=== PATIENT | male | born 1945 | race Caucasian/White ===

== ENCOUNTER 2023-06-10 09:33 | Day surgery (SDC) | payer OTHER ==
[2023-06-06 11:50] VITALS: BMI 25.0
[2023-06-10] MEDS ORDERED: PROPOFOL 60 ML ONE (11:17)
[2023-06-10 11:51] VITALS: RESP 18; TEMP 97.2
[2023-06-10 12:21] VITALS: BP 122/64; PULSE 70
== END 2023-06-10 12:21 | disposition home or self-care (01) ==
LOC: FASU-ENDO 09:33
PROVIDERS: ATTEND Internal Medicine Gastroenterology
PROC: 3E0H8GC Introduction of Other Therapeutic Substance into Lower GI, Via Natural or Artificial Opening Endoscopic (ICD-10-PCS; 2023-06-10)
PROC: 0DBK8ZX Excision of Ascending Colon, Via Natural or Artificial Opening Endoscopic, Diagnostic (ICD-10-PCS; principal; 2023-06-10 11:17)
DX: Z12.11 Encounter for screening for malignant neoplasm of colon (principal); D12.2 Benign neoplasm of ascending colon; K57.30 Diverticulosis of large intestine without perforation or abscess without bleeding; Z86.010 Personal history of colon polyps; Z80.0 Family history of malignant neoplasm of digestive organs
CPT/HCPCS: 88305-TC